=== PATIENT | female | born 1995 | race Caucasian/White ===

== ENCOUNTER → 2017-10-06 08:46 | Outpatient (CLI) | payer OTHER, SELFPAY ==
--- NOTE | 2017-10-06 08:46 | DT_ITS ---
This patient was seen during an EMR downtime September 29, 2017 - October 06, 2017. This patient may have a combination of paper and electronic documentation or all paper documentation. All documentation is viewable within the e-chart portion of [facility] for each patient visit.
--- NOTE | 2017-10-06 08:54 | RAD_ITS ---
STUDY: X-RAY - LEFT WRIST REASON FOR EXAM: Female, 22 years old. Patient had a recent fall. Pain in left wrist into left forearm with contusions.. TECHNIQUE: 3 view(s) of the wrist were obtained. COMPARISON: None. FINDINGS: Normal visualized distal radius and ulna. Normal radiocarpal articulation. Normal distal radioulnar articulation. Normal carpal bones. Normal carpal articulations. Normal carpometacarpal articulation of the thumb. Normal second through fifth carpometacarpal articulations. Normal visualized metacarpal bones. The soft tissue structures are unremarkable. RAD/Wrist min 3 Views IMPRESSION: Normal x-ray examination of the wrist. Electronically Signed: Nilson Padilla MD at 9:47 EDT Tel , Service support ,
--- NOTE | 2017-10-06 08:54 | RAD_ITS ---
STUDY: X-RAY - LEFT RADIUS AND ULNA REASON FOR EXAM: Female, 22 years old. Patient had a recent fall. Pain in left wrist into left forearm with contusions.. TECHNIQUE: 2 view(s) of the forearm. COMPARISON: None. FINDINGS: There is no demonstrated soft tissue swelling. Normal visualized radius. Normal visualized ulna. RAD/Forearm 2 Views IMPRESSION: Normal x-ray examination of the radius and ulna. Electronically Signed: Nilson Padilla MD at 9:48 EDT Tel , Service support ,
== END ==
PROVIDERS: Visit Provider Physician Assistant
DX: S50.12XA Contusion of left forearm, initial encounter (principal); S60.212A Contusion of left wrist, initial encounter; X58.XXXA Exposure to other specified factors, initial encounter; Y93.9 Activity, unspecified; Y92.9 Unspecified place or not applicable
CPT/HCPCS: 73090; 73110

== ENCOUNTER 2018-06-28 21:06 | Emergency (ER) | payer OTHER, MEDICAID, SELFPAY ==
[2018-06-28 21:07] VITALS: BP 102/70; PULSE 83; RESP 16; TEMP 36.4; O2SAT 100; BMI 21.7
--- NOTE | 2018-06-28 21:24 | CT_ITS ---
STUDY: CT BRAIN WITHOUT CONTRAST REASON FOR EXAM: Female, 23 years old. Right-sided headache. RADIATION DOSAGE (If Supplied By Facility): CTDIvol = ( 44.99 ) mGy, DLP = ( 762.36 ) mGycm TECHNIQUE: Transaxial CT imaging of the brain was performed without administration of intravenous contrast material. Individualized dose optimization techniques were used for this CT. COMPARISON: None. FINDINGS: Normal soft tissue structures. Normal calvarium. Normal size ventricles and extra-axial spaces for the patient's age. Normal white matter tracts of the cerebral hemispheres. Normal basal ganglia and thalami. Normal brainstem. Normal cerebellum. There is no intracranial hemorrhage. There are no findings of an acute ischemic infarction. There is minimal opacification of the visualized right maxillary sinus. CT/Brain/Head without Contrast IMPRESSION: No acute intracranial process. Trace opacification of the visualized right maxillary sinus consistent with a history of sinusitis. Electronically Signed: Sasha Kaplan MD at 22:32 EST Tel , Service support ,
--- NOTE | 2018-06-28 21:26 | ED.VISSUMM ---
- ER Visit Summary Date of Service: 06/28/18 Chief Complaint: Right-sided headache History of Present Illness: The patient is a 23 F history of von Willebrand's bleeding disorder. States that she had gradual onset of a right-sided headache that began yesterday morning. Associated nausea but no vomiting or diarrhea. No fever or neck pain. No head or neck trauma. She is on no blood thinners. States she is currently not . States she has had headaches before in the past not this severe. It was gradual in onset not thunderclap. There is no family history of intracranial bleeds. No sinus congestion. She does have sonophobia and photophobia associated with the right-sided headache. No neurological symptoms. No weakness, numbness, tingling or visual change. No speech problems. Physical Examination: Young female no acute distress. Vital signs are stable and afebrile. She is seated in bed in a darkened room. She is in no distress. HEENT exam pupils round reactive light. Extraocular motions are intact. No signs of trauma to her face or head. Neck nontender. No lymphadenopathy. Lungs clear to auscultation bilaterally. Heart regular rhythm no murmur. Chest nontender. Abdomen soft nontender. Girdle intact. Remedies moves all 4. Neurovascular intact. Equal symmetrical 5 out of 5 image scientist strength. Dorsi plantar flexion intact. Fingertip to nose and heel to kirkpatrick within normal limits. Back nontender. Neurologically she is awake and alert. No facial droop. Normal speech. No motor or sensory deficits. NIH is 0. Test Results: CAT scan of the brain without contrast eating formal radiologist interpretation prior to any discharge. Emergency Department Course and Treatment: Clinically the patient's history and exam are consistent with a migraine headache. She does have a history of a bleeding disorder and will need a CAT scan. She will be treated with IV fluids, Phenergan, Benadryl and Nubain. Due to her bleeding disorder I do not feel Toradol is a good choice at this time. Treatment Plan: Repeat exam patient is doing much better at 2211. Her headache is resolving clinically she looks and feels much better. She and I discussed her diagnosis of most likely new onset migraine headache. Her father occasionally gets migraines. She will be written for Imitrex as needed for her headaches. Repeat neurologic exam is normal. Disposition: Discharge Impression: Acute right-sided headache (acute migraine) History of von Willebrand's bleeding disorder This note was generated with [employer] dictation software. It may contain incorrect words, spelling, and punctuation that were not noted in review of the chart prior to signing ED Disposition - Plan for ED Patient: Disposition: Home or Assisted Living Instructions: ED Headache Migraine Prescriptions: Sumatriptan Succinate [Imitrex] 25 mg PO Q4H PRN PRN #7 tab PRN Reason: Migraine Symptoms [facility]errals: [facility] [Primary Care Provider] - 3-5 Days if not improving Additional Instructions: Plenty of fluids and rest. Tylenol for pain. Follow-up your doctor if not improving return to the ER feeling worse.
--- NOTE | 2018-06-28 21:29 | ED.DCSUM_ITS ---
- ER Visit Summary Date of Service: 06/28/18 Chief Complaint: Right-sided headache History of Present Illness: The patient is a 23 F history of von Willebrand's bleeding disorder. States that she had gradual onset of a right-sided headache that began yesterday morning. Associated nausea but no vomiting or diarrhea. No fever or neck pain. No head or neck trauma. She is on no blood thinners. States she is currently not . States she has had headaches before in the past not this severe. It was gradual in onset not thunderclap. There is no family history of intracranial bleeds. No sinus congestion. She does have sonophobia and photophobia associated with the right-sided headache. No n eurological symptoms. No weakness, numbness, tingling or visual change. No speech problems. Physical Examination: Young female no acute distress. Vital signs are stable and afebrile. She is seated in bed in a darkened room. She is in no distress. HEENT exam pupils round reactive light. Extraocular motions are intact. No signs of trauma to her face or head. Neck nontender. No lymphadenopathy. Lungs clear to auscultation bilaterally. Heart regular rhythm no murmur. Chest nontender. Abdomen soft nontender. Girdle intact. Remedies moves all 4. Neurovascular intact. Equal symmetrical 5 out of 5 customer support engineer strength. Dorsi plantar flexion intact. Fingertip to nose and heel to kirkpatrick within normal limits. Back nontender. Neurologically she is awake and alert. No facial droop. Normal speech. No motor or sensory deficits. NIH is 0. Test Results: CAT scan of the brain without contrast eating formal radiologist interpretation prior to any discharge. Emergency Department Course and Treatment: Clinically the patient's history and exam are consistent with a migraine headache. She does have a history of a bleeding disorder and will need a CAT scan. She will be treated with IV fluids, Phenergan, Benadryl and Nubain. Due to her bleeding disorder I do not feel Toradol is a good choice at this time. Treatment Plan: Repeat exam patient is doing much better at 2211. Her headache is resolving clinically she looks and feels much better. She and I discussed her diagnosis of most likely new onset migraine headache. Her father occasionally gets migraines. She will be written for Imitrex as needed for her headaches. Repeat neurologic exam is normal. Disposition: Discharge Impression: Acute right-sided headache (acute migraine) History of von Willebrand's bleeding disorder This note was generated with [employer] dictation software. It may contain incorrect words, spelling, and punctuation that were not noted in review of the chart prior to signing ED Disposition - Plan for ED Patient: Disposition: Home or Assisted Living Instructions: ED Headache Migraine Prescriptions: Sumatriptan Succinate [Imitrex] 25 mg PO Q4H PRN PRN #7 tab PRN Reason: Migraine Symptoms Referrals: [facility],Out of [Primary Care Provider] - 3-5 Days if not improving Additional Instructions: Plenty of fluids and rest. Tylenol for pain. Follow-up your doctor if not improving return to the ER feeling worse.
[2018-06-28] MEDS: 0.9% Normal Saline 1,000 ML 1000 ML IV (21:39)
[2018-06-28] MEDS: DiphenhydrAMINE 50 MG/ML Syringe 25 MG IV (21:40)
[2018-06-28] MEDS: proMETHazine 25 MG/ML Syringe 12.5 MG IV (21:40)
[2018-06-28] MEDS: Nalbuphine 10 MG/ML Ampul 5 MG IV (21:41)
[2018-06-28 22:25] VITALS: BP 104/54; PULSE 75; RESP 14
== END 2018-06-28 22:38 | disposition home or self-care (01) ==
PROVIDERS: Emergency Provider Emergency Medicine
DX: G43.909 Migraine, unspecified, not intractable, without status migrainosus (principal); D68.0 Von Willebrand disease
CPT/HCPCS: 70450; 96361; 96374; 96375; 99283; J7030; A4216

== ENCOUNTER 2018-11-06 19:50 | Emergency (ER) | payer OTHER, MEDICAID, SELFPAY ==
[2018-11-06 19:52] VITALS: BP 115/65; PULSE 98; RESP 18; TEMP 36.6; O2SAT 100; BMI 22.0
--- NOTE | 2018-11-06 20:50 | ED.DCSUM_ITS ---
- ER Visit Summary Date of Service: 11/06/18 Chief Complaint: Allergic reaction History of Present Illness: The patient is a 23 F past medical history of von Willebrand's disease. She had a UTI a month ago was treated with Macrobid got better. Diagnosed a UTI on Friday at the [facility] was placed on Bactrim she took it on Friday and Friday and developed a rash on her legs on Friday. They change the antibiotic to Cipro yesterday. She is been taking Benadryl for the itching. She is unknown allergic reaction to Keflex but is never had a sulfa reaction. She states her UTI symptoms are improving. Her last UTI was sensitive to Cipro she has the culture with her but the UTI they a re currently treating the culture is not back yet. Physical Examination: Well-appearing young female vital signs are stable afebrile. Pulse ox 100% on room air no hypoxia. No distress. HEENT exam unremarkable. Neck nontender. No lymphadenopathy. Tongue and lips are not swollen. No trouble breathing or swallowing. Lungs clear to auscultation bilaterally. No rales rhonchi or wheezing. Heart regular rate and rhythm no murmur. Abdomen soft and nontender. Remedies moves all 4. Calves nontender no edema no cords. She does have a rash consistent with a allergic drug reaction on both lower extremities. It is red and blanches. Is not specifically raised. There is no edema nor calf tenderness. Neurologically she is awake and alert. Test Results: None Emergency Department Course and Treatment: Prednisone 60 mg here. Treatment Plan: Prednisone daily for 5 days for the allergic reaction. Continue her Cipro. She has already stopped the Bactrim. Follow-up with the urgent care to make sure the culture is sensitive to the Cipro. Disposition: Discharge Impression: Acute allergic reaction to Bactrim with a rash Hx of a UTI being treated with Cipro This note was generated with [employer] dictation software. It may contain incorrect words, spelling, and punctuation that were not noted in review of the chart prior to signing ED Disposition - Plan for ED Patient: Referrals: Soila Rose NP-C [Primary Care Provider] -
--- NOTE | 2018-11-06 20:53 | ED.DEP ---
ED Disposition - Plan for ED Patient: Disposition: Home or Assisted Living Instructions: ALLERGIC REACTION, Other (General) Prescriptions: Prednisone [Deltasone] 40 mg PO DAILY 5 Days tab Prescription Printed Referrals: Soila Rose NP-C [Primary Care Provider] - As Needed Additional Instructions: Prednisone daily for the next 5 days starting tomorrow. Continue and finish her Cipro antibiotic. Follow-up with the urgent care to make sure urine culture is sensitive to Cipro. Return if feeling worse.
[2018-11-06] MEDS: predniSONE 20 MG Tablet 60 MG PO (20:57)
== END 2018-11-06 21:00 | disposition home or self-care (01) ==
PROVIDERS: Emergency Provider Emergency Medicine; PCP Registered Nurse
DX: L27.1 Localized skin eruption due to drugs and medicaments taken internally (principal); T36.8X5A Adverse effect of other systemic antibiotics, initial encounter; Y92.9 Unspecified place or not applicable; R19.7 Diarrhea, unspecified; N39.0 Urinary tract infection, site not specified; D68.0 Von Willebrand disease
CPT/HCPCS: 99283